=== PATIENT | female | born 1995 | race Caucasian/White ===

== ENCOUNTER 2021-01-15 16:32 | Inpatient (IN) | payer BC ==
[~2021-01-15] VITALS: Ht 167.6 cm; Wt 90.5 kg
[2021-01-15] VITALS (16 sets, daily range): BP systolic 125–163; BP diastolic 78–97; PULSE 78–112; TEMP 97.9
[2021-01-15] MEDS ORDERED: CALCIUM CARBON650 M2 (17:11)
[2021-01-15] MEDS ORDERED: PRENATAL TABLET PO (17:11)
[2021-01-15] MEDS ORDERED: CLARITIN 1010 MG/TAB PO (17:11)
[2021-01-15 18:11] LABS: BASO % 0.2 % (0.0-2.0); EOS # 0.1 (0.0-0.7); EOS % 0.9 % (0-4.0); GRAN # 6.7 (1.4-6.5); GRAN % 68.7 % (42.2-75.2); HEMATOCRIT 38.5 % (37.0-47.0); HEMOGLOBIN 13.3 g/dl (12.5-16.0); LYMPH # 2.4 (1.2-3.4); LYMPH % 24.8 % (20.0-51.0); MEAN CELL VOLUME 90 fl (80.0-100.0); MEAN CORPUSCULAR HEMOGLOBIN 31 pg (27.0-31.0); MEAN CORPUSCULAR HGB CONC 35 g/dl (33.0-37.0); MEAN PLATELET VOLUME 10.7 fl (7.4-10.4); MONO # 0.5 (0.1-0.6); MONO % 4.9 % (1.7-9.3); PLATELET COUNT 184 K/mm3 (130-400); REDCELL DISTRIBUTION WIDTH-CV 12.4 % (11.5-14.5)
[2021-01-15 20:51] LABS: ALBUMIN 3.1 gm/dL (3.5-5.0); BILIRUBIN,TOTAL 0.3 mg/dL (0.0-1.0); CALCIUM 8.8 mg/dL (8.4-10.2); CREATININE, serum 0.77 (0.52-1.25); POTASSIUM 3.9 mmol/L (3.4-5.0); TOTAL PROTEIN 5.9 gm/dL (6.4-8.2)
[2021-01-15 22:17] LABS: PH 6 (5-8); SQUAMOUS EPITHELIAL 0-2 /hpf; URINE APPEARANCE Clear; URINE BACTERIA Rare /hpf; URINE BILIRUBIN Negative (NEGATIVE); URINE BLOOD Negative (NEGATIVE); URINE COLOR Yellow; URINE GLUCOSE Negative (NEGATIVE); URINE KETONE Negative (NEGATIVE); URINE LEUKOCYTE ESTERASE Negative (NEGATIVE); URINE NITRATE Negative (NEGATIVE); URINE PROTEIN(semi-quant) Negative (NEGATIVE); URINE RBC None Seen /hpf; URINE UROBILINOGEN Negative (NEGATIVE); URINE WBC 0-2 /hpf
[2021-01-15 22:33] LABS: COLLECTION METHOD CLEAN CATCH
[2021-01-16] VITALS (48 sets, daily range): BP systolic 109–151; BP diastolic 64–100; PULSE 67–117; TEMP 97.5–97.9
[2021-01-17 01:00] VITALS: BP 122/85; PULSE 86; TEMP 98.1
[2021-01-17] MEDS ORDERED: IBU600 MG PO (01:02)
[2021-01-17 03:15] VITALS: BP 133/90; PULSE 80; TEMP 97.5
[2021-01-17 06:55] VITALS: BP 133/88; PULSE 88; TEMP 97.7
[2021-01-17 11:07] VITALS: BP 133/87; PULSE 100; TEMP 98
[2021-01-17 16:09] VITALS: BP 121/77; PULSE 92; TEMP 98.4
[2021-01-17 19:20] VITALS: BP 130/83; PULSE 95; TEMP 97.7
[2021-01-18] MEDS ORDERED: ADALAT CC30 MG PO (08:40)
[2021-01-18 09:00] VITALS: BP 126/80; PULSE 84; TEMP 98.4
== END 2021-01-18 14:55 | disposition home or self-care (01) | DRG 807 ==
LOC: LDRO 16:32 → LDR 16:36 → OB 01-16 16:00
PROVIDERS: ADMIT Obstetrics & Gynecology
PROC: 3E033VJ Introduction of Other Hormone into Peripheral Vein, Percutaneous Approach (ICD-10-PCS; 2021-01-15)
PROC: 10E0XZZ Delivery of Products of Conception, External Approach (ICD-10-PCS; principal; 2021-01-16)
PROC: 0HQ9XZZ Repair Perineum Skin, External Approach (ICD-10-PCS; 2021-01-16)
PROC: 10907ZC Drainage of Amniotic Fluid, Therapeutic from Products of Conception, Via Natural or Artificial Opening (ICD-10-PCS; 2021-01-16)
DX: O41.03X0 Oligohydramnios, third trimester, not applicable or unspecified (principal); Z37.0 Single live birth; O36.5930 Maternal care for other known or suspected poor fetal growth, third trimester, not applicable or unspecified; O13.3 Gestational [pregnancy-induced] hypertension without significant proteinuria, third trimester; O70.0 First degree perineal laceration during delivery; Z3A.37 37 weeks gestation of pregnancy
CPT/HCPCS: J2590; J2791; J7120

== ENCOUNTER 2023-12-15 00:12 | Inpatient (IN) | payer BC ==
[~2023-12-15] VITALS: Ht 165.1 cm; Wt 93.2 kg
[2023-12-15] VITALS (12 sets, daily range): BP systolic 121–144; BP diastolic 8–86; PULSE 63–89; TEMP 98–98.4
[~2023-12-15 00:12] MED LIST: ADALAT CC30 MG PO; CALCIUM CARBON650 M2; CLARITIN 1010 MG/TAB PO; FLEXERIL 1010 MG/TAB PO; IBU600 MG PO; MOTRIN 800800 MG/TAB PO; PERCOCET 325 MG1 TA2 PO; PRENATAL TABLET PO
--- NOTE | 2023-12-15 00:15 | NUR ---
PT PRESENTS TO L&D WITH C/O FEELING INTENSE PRESSURE WITH CTX. PT LEANING TO THE RIGHT SIDE WHILE SITTING IN THE WHEELCHAIR. PT TO BED, MONITORS PLACED ON ABD, FHR CATEGORY 1. CTX 2-3 MIN. STRONG. SVE /-2. PT REQUESTING EPIDURAL. 0030 DR SOTO NOTIFIED OF PT HERE, SVE, FHR, REQUESTS FOR EPIDURAL, GBS POSITIVE. ORDERS TO ADMIT, MAY HAVE EPIDURAL. START ANTIBIOTICS.
[2023-12-15] MEDS ORDERED: Penicillin G Potassium 5,000,000 UNITS in NS 100 ML IV ONE (00:45)
[2023-12-15] MEDS ORDERED: LR & Oxytocin 500 ML IV SCH (00:45)
[2023-12-15] MEDS ORDERED: LR 1,000 ML IV SCH (00:45)
--- NOTE | 2023-12-15 00:50 | NUR ---
0050 SROM FLUID CLEAR THEN BLOODY. SVE /-1. DR SOTO NOTIFIED TO HEAD THIS WAY TO THE HOSPITAL. 0055 PT GRUNTING AND PUSHING WITH CTX'S. COMPLETE BABY AT +2 STATION. 0059 VAG DELIVERY OF FEMALE INFANT. BABY PLACED ON MOMS ABD, DRIED AND STIMULATED. CORD CLAMPED AND CUT AFTER 1 MIN. BABY TAKEN TO WARMER FOR FURTHER EVAL BY NURSERY NURSE. 0104 PLACENTA DELIVERED, PITOCIN STARTED AT 333ML/HR VIA PUMP. 0105 DR SOTO HERE. PT UP IN FOOT REST TO CHECK FOR AND DO REPAIRS. PT HAS 1 DEGREE LAC WITH REPAIR USING ONE SUTURE.
[2023-12-15 01:37] LABS: BASO % 0.3 % (0.0-2.0); EOS # 0.1 K/mm3 (0.0-0.7); EOS % 0.9 % (0.0-4.0); GRAN # 5.2 K/mm3 (1.4-6.5); GRAN % 65.2 % (42.2-75.2); HEMOGLOBIN 11.7 g/dl (12.5-16.0); LYMPH # 2.1 K/mm3 (1.2-3.4); LYMPH % 26.8 % (20.0-51.0); MEAN CELL VOLUME 87 fl (80.0-100.0); MEAN CORPUSCULAR HEMOGLOBIN 30 pg (27-31); MEAN CORPUSCULAR HGB CONC 35 g/dl (33.0-37.0); MEAN PLATELET VOLUME 10.3 fl (7.4-10.4); MONO # 0.5 K/mm3 (0.1-0.6); MONO % 6.4 % (1.7-9.3); PLATELET COUNT 170 K/mm3 (130-400); RED BLOOD COUNT 3.89 M/mm3 (4.10-5.30); REDCELL DISTRIBUTION WIDTH-CV 12.3 % (11.5-14.5)
[2023-12-15 01:38] LABS: HEMATOCRIT 33.7 % (37.0-47.0)
[2023-12-15] MEDS ORDERED: Naloxone 0.4 MG/ML VIAL IV PRN (01:45)
[2023-12-15] MEDS ORDERED: Loratadine 10 MG TAB PO PRN (01:45)
[2023-12-15] MEDS ORDERED: Phenylephrine/Mineral Oil/Petrolatum 57 GM TUBE RC PRN (01:45)
[2023-12-15] MEDS ORDERED: Measles/Mumps/Rubella Virus Vaccine Live w Diluent 0.5 ML VIAL SQ SCH (01:45)
[2023-12-15] MEDS ORDERED: Witch Hazel 50% Pads Bulk TUB TP PRN (01:45)
[2023-12-15] MEDS ORDERED: Ibuprofen 600 MG TAB PO SCH (01:45)
[2023-12-15] MEDS ORDERED: Mag/Al Hydrox/Simeth Susp 30 ML CUP PO PRN (01:45)
[2023-12-15] MEDS ORDERED: Acetaminophen 500 MG TAB PO SCH (01:45)
[2023-12-15] MEDS ORDERED: oxyCODONE 5 MG TAB PO PRN (01:45)
[2023-12-15] MEDS ORDERED: Magnes Hydrox (MOM) 80 MG/ML 30 ML CUP PO PRN (01:45)
[2023-12-15] MEDS ORDERED: Penicillin G Potassium 2,500,000 UNITS in NS 100 ML IV SCH (04:36)
[2023-12-15] MEDS ORDERED: Sennosides/Docusate 8.6-50 MG TAB PO SCH (08:00)
--- NOTE | 2023-12-15 10:54 | NUR ---
Initial visit; Parents thanked Maintenance Groundskeeper for offering congratulations and God's blessings for the of their daughter. Maintenance Groundskeeper thanked family for choosing [facility].
[2023-12-15] MEDS ORDERED: Rho(D) Imm Globulin 1,500 UNITS (300 MCG)/2 ML SYRINGE IV\\IM SCH (11:00)
--- NOTE | 2023-12-15 16:57 | NUR ---
1350 PT CALLS OUT FOR HELP. RN ASSISTS WITH LATCH ON LEFT SIDE. MOTHER INDEPENDENTLY LATCHES ON THE RIGHT. INFANT NURSED FOR 07/28.
[2023-12-15] MEDS ORDERED: traZODone 50 MG TAB PO PRN (21:00)
[2023-12-16 08:20] VITALS: BP 134/86; PULSE 76; TEMP 98.2
--- NOTE | 2023-12-16 21:50 | NUR ---
2149- DISCHARGE INSTRUCTIONS GIVEN AND QUESTIONS ANSWERED. PT VERBALIZES UNDERSTANDING AND SIGNS PAPERWORK. 2199- PT DISMISSED TO HOME AMBULATORY WITH BABY AND BELONGINGS. ACCOMPANIED BY SPOUSE AND ESCORTED TO EXIT BY NURSE.
== END 2023-12-16 22:00 | disposition home or self-care (01) | DRG 806 ==
LOC: LDRO 00:12 → OB 00:15 → LDR 00:15 → OB 03:12
PROVIDERS: ADMIT Obstetrics & Gynecology
PROC: 10E0XZZ Delivery of Products of Conception, External Approach (ICD-10-PCS; principal; 2023-12-15)
PROC: 0HQ9XZZ Repair Perineum Skin, External Approach (ICD-10-PCS; 2023-12-15)
PROC: 0UQMXZZ Repair Vulva, External Approach (ICD-10-PCS; 2023-12-15)
DX: O99.344 Other mental disorders complicating childbirth (principal); O10.913 Unspecified pre-existing hypertension complicating pregnancy, third trimester; Z37.0 Single live birth; O99.02 Anemia complicating childbirth; O99.824 Streptococcus B carrier state complicating childbirth; Z3A.37 37 weeks gestation of pregnancy; F32.A Depression, unspecified; O62.3 Precipitate labor; O71.82 Other specified trauma to perineum and vulva; O70.9 Perineal laceration during delivery, unspecified; Z23 Encounter for immunization
CPT/HCPCS: J2791; J7120